=== PATIENT | male | born 1945 | race Caucasian/White ===

== ENCOUNTER 2019-02-08 17:18 | Emergency (ER) | payer MEDICARE, MEDICAID ==
[~2019-02-08] VITALS: Ht 182.9 cm; Wt 70.5 kg
[~2019-02-08 17:18] MED LIST: BUDE10.2 INH
--- NOTE | 2019-02-08 17:36 | NUR ---
THIS IS A 73 YO MALE BIB [facility] C/O RUQ/LUQ PAIN AND "BEING KICKED OUT OF MY PRISON BECAUSE MY MEDICAID RAN OUT". PT REPORTS NO FOOD OR MEDICINE SINCE YESTERDAY. UPON MD ENTERING THE ROOM, PT ADDITIONALLY ADDED THAT HE WAS "SHORT OF BREATH" D/T THE PAIN. DIFFICULT TO OBTAIN ANSWERS TO QUESTIONS ABOUT MEDICAL HISTORY PT WILL STATE VAUGE COMPLAINTS/PROBLEMS FOLLOWED BY "I DON'T REALLY KNOW". PT ANSWERS ALL ORIENTATION QUESTIONS APPROPRIATELY. SKIN PWD. RESP EVEN AND UNLABORED. 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 CALL LIGHT WITHIN REACH. WILL CONT TO MONITOR PT.
--- NOTE | 2019-02-08 17:39 | NUR ---
iv access established.
[2019-02-08] MEDS ORDERED: MORPHINE SULFATE 4 MG/ML, 1ML IVPush PRN (18:30)
--- NOTE | 2019-02-08 18:42 | NUR ---
PT CURRENTLY RESTING ON GURNEY. NAD NOTED. SKIN PWD. RESP EVEN AND UNLABORED. 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 PT CURRENTLY DENIES PAIN/NEEDS. CALL LIGHT WITHIN REACH. WILL CONT TO MONITOR PT.
[2019-02-08 19:00] LABS: BASOPHILS # (AUTO) 0.02 x10^3/uL (0-0.1); BASOPHILS % (AUTO) 0 % (0-1); EOSINOPHILS % (AUTO) 2 % (1-7); LYMPHOCYTES % (AUTO) 15 % (22-44); MD NO; MEAN CORPUSCULAR HEMOGLOBIN 30.5 pg (27.5-34.5); MEAN CORPUSCULAR HGB CONC 33.9 g/dL (33.2-36.2); MEAN CORPUSCULAR VOLUME 89.8 fL (81-97); MEAN PLATELET VOLUME 7.1 fL (7.4-10.4); MONOCYTES # (AUTO) 0.46 x10^3/uL (0.2-0.8); MONOCYTES % (AUTO) 8 % (2-9); NEUTROPHILS # (AUTO) 4.63 x10^3/uL (1.8-6.8); NEUTROPHILS % (AUTO) 76 % (42-75); PLATELET COUNT 238 x10^3/uL (130-400); RED BLOOD COUNT 4.46 x10^6/uL (4.38-5.82); RED CELL DISTRIBUTION WIDTH 14.9 % (9.4-14.8)
[2019-02-08 19:07] LABS: INTERNATIONAL NORMALIZED RATIO 1.08 (0.93-1.1); PROTHROMBIN TIME 11.3 Seconds (9.6-11.5)
[2019-02-08 19:09] LABS: ALANINE AMINOTRANSFERASE 11 U/L (12-78); ALBUMIN 3.3 g/dL (3.4-5.0); ANION GAP 8 mmol/L (5-15); CALCIUM 8.6 mg/dL (8.5-10.1); CHLORIDE 108 mmol/L (98-107)
[2019-02-08 19:12] LABS: ALKALINE PHOSPHATASE 103 U/L (45-117); BILIRUBIN,TOTAL 0.6 mg/dL (0.2-1.0); CREATININE 0.98 mg/dL (0.7-1.3); TOTAL PROTEIN 6.7 g/dL (6.4-8.2)
--- NOTE | 2019-02-08 19:35 | NUR ---
PT TO IMAGING VIA [employer] AT THIS TIME.
--- NOTE | 2019-02-08 20:30 | NUR ---
PT CURRENTLY RESTING ON GURNEY. NAD NOTED. SKIN PWD. RESP EVEN AND UNLABORED. PT AO X 4. PT CONT TO DENY PAIN. PT ON CONT BP, CARDIAC AND O2 MONITORS. PT AWARE WE ARE WAITING FOR RECHECK. CALL LIGHT WITHIN REACH. WILL CONT TO MONITOR PT.
[2019-02-08 21:58] VITALS: BP 161/83
[2019-02-09] MEDS ORDERED: OMNIPAQUE 350 MG/ML, 100ML BOTTLE ONE (06:44)
== END 2019-02-08 22:00 | disposition home or self-care (01) ==
LOC: ED 18:26
DX: R07.89 Other chest pain (principal); R10.11 Right upper quadrant pain; J44.9 Chronic obstructive pulmonary disease, unspecified
CPT/HCPCS: 36415; 71275; 74177; 80053; 85025; 85610; 85730; 99284; Q9967